=== PATIENT | male | born 1990 | race Two or more races ===

== ENCOUNTER 2020-02-08 06:00 | Outpatient (CLI) | payer OTHER ==
[2020-02-08] MEDS ORDERED: HUMULIN R500 UNIT/1 (13:33)
[2020-02-08] MEDS ORDERED: LANTUS SOL100 UNIT/1 SUBCUTANEO (15:09)
[2020-02-08] MEDS ORDERED: HUMULIN R500 UNIT/2 SUBCUTANEO (15:10)
== END 2020-02-08 06:05 | disposition home or self-care (01) ==
LOC: LAB 06:00 → EDSTATUS 02-12 07:00 → CIR.AMB 02-12 07:00
PROVIDERS: ATTEND Orthopaedic Surgery
DX: S82.872A Displaced pilon fracture of left tibia, initial encounter for closed fracture (principal); D64.89 Other specified anemias; E88.89 Other specified metabolic disorders; D68.8 Other specified coagulation defects; N39.0 Urinary tract infection, site not specified; Z22.322 Carrier or suspected carrier of Methicillin resistant Staphylococcus aureus; Z76.89 Persons encountering health services in other specified circumstances; I10 Essential (primary) hypertension; I49.8 Other specified cardiac arrhythmias; Z01.810 Encounter for preprocedural cardiovascular examination; Z01.812 Encounter for preprocedural laboratory examination; Z01.811 Encounter for preprocedural respiratory examination

== ENCOUNTER → 2020-02-12 | Outpatient (CLI) | payer OTHER ==
[~2020-02-12] MED LIST: HUMULIN R500 UNIT/1; HUMULIN R500 UNIT/2 SUBCUTANEO; LANTUS SOL100 UNIT/1 SUBCUTANEO
== END | disposition home or self-care (01) ==
LOC: TOM 12:07
PROVIDERS: ATTEND Orthopaedic Surgery
DX: S82.872A Displaced pilon fracture of left tibia, initial encounter for closed fracture (principal); S93.432A Sprain of tibiofibular ligament of left ankle, initial encounter

== ENCOUNTER 2020-02-29 09:35 | Inpatient (IN) | payer OTHER ==
[2020-03-12] MEDS ORDERED: Procardia Xl 30MG TA PO (15:00)
[2020-03-12] MEDS ORDERED: XARELTO10 MG PO (15:00)
[2020-03-12] MEDS ORDERED: LOSARTAN POTASS50 MG PO (15:00)
[2020-03-12] MEDS ORDERED: METOPROLOL TART50 MG PO (15:00)
[2020-03-12] MEDS ORDERED: HYDROCHLOROTHIA25 MG PO (15:01)
[2020-03-12] MEDS ORDERED: LANTUS SOL100 UNIT/1 SUBCUTANEO (15:02)
[2020-03-12] MEDS ORDERED: HUMALOG100 UNIT/2 SUBCUTANEO (15:03)
[2020-03-12] MEDS ORDERED: NIFE60TA3 PO (15:07)
== END 2020-03-12 18:20 | disposition home or self-care (01) | DRG 493 ==
LOC: CIR.AMB 09:35 → U 09:35 → CIR.AMB 12:22 → SURH 20:33
PROVIDERS: Orthopaedic Surgery; ADMIT Internal Medicine; ATTEND Internal Medicine
PROC: 02HV33Z Insertion of Infusion Device into Superior Vena Cava, Percutaneous Approach (ICD-10-PCS; 2020-02-29)
PROC: 0QSH06Z Reposition Left Tibia with Intramedullary Internal Fixation Device, Open Approach (ICD-10-PCS; principal; 2020-02-29 07:00)
PROC: 4A12X4Z Monitoring of Cardiac Electrical Activity, External Approach (ICD-10-PCS; 2020-03-02)
PROC: B24BZZZ Ultrasonography of Heart with Aorta (ICD-10-PCS; 2020-03-06)
DX: S82.392A Other fracture of lower end of left tibia, initial encounter for closed fracture (principal); J98.11 Atelectasis; D62 Acute posthemorrhagic anemia; I16.0 Hypertensive urgency; E66.8 Other obesity; I10 Essential (primary) hypertension; Z89.421 Acquired absence of other right toe(s); E11.65 Type 2 diabetes mellitus with hyperglycemia; R11.2 Nausea with vomiting, unspecified; T40.4X5A Adverse effect of other synthetic narcotics, initial encounter; W18.39XA Other fall on same level, initial encounter; R00.0 Tachycardia, unspecified; Z79.4 Long term (current) use of insulin

== ENCOUNTER → 2020-05-15 12:57 | Outpatient (CLI) | payer OTHER ==
[~2020-05-15 12:57] MED LIST changes: +HUMALOG100 UNIT/2 SUBCUTANEO; +HYDROCHLOROTHIA25 MG PO; +LOSARTAN POTASS50 MG PO; +METOPROLOL TART50 MG PO; +NIFE60TA3 PO; +Procardia Xl 30MG TA PO; +XARELTO10 MG PO
== END | disposition home or self-care (01) ==
LOC: RAD 12:57
PROVIDERS: ATTEND Orthopaedic Surgery
DX: S82.872D Displaced pilon fracture of left tibia, subsequent encounter for closed fracture with routine healing (principal); S93.432D Sprain of tibiofibular ligament of left ankle, subsequent encounter